=== PATIENT | male | born 1955 | race African-American/Black ===

== ENCOUNTER 2017-06-08 17:05 | Emergency (ER) | payer MEDICAID, OTHER, SELFPAY ==
[~2017-06-08] VITALS: Ht 170.2 cm; Wt 91.8 kg
[2017-06-08 17:06] VITALS: BP 144/96
[2017-06-08] MEDS ORDERED: HYDROcodone/APAP 5/325 TABLET ONE (17:23)
[2017-06-08] MEDS ORDERED: HYDROcodone/APAP 5/325 TABLET PO ONE (17:30)
== END 2017-06-08 17:37 | disposition home or self-care (01) ==
LOC: ED 17:20
DX: K02.9 Dental caries, unspecified (principal)
CPT/HCPCS: 99283